=== PATIENT | male | born 1960 | race Caucasian/White ===

== ENCOUNTER 2016-09-24 08:18 | Emergency (ER) | payer OTHER ==
[2016-09-24] MEDS ORDERED: MORPHINE SULFATE INJ 2 MG ONE ×2 (08:23→08:25)
[2016-09-24] MEDS ORDERED: MORPHINE SULFATE INJ 4 MG IVP ONE (08:29)
--- NOTE | 2016-09-24 08:31 | DR.CP ---
HPI - Time Seen Time seen: 08:20 PMH - PMH Past Medical History: Asthma, COPD, Coronary Artery Disease, Diabetes, Hypertension, [place] Past Surgical History: Yes Surgical History: Angioplasty/Stents - Family History Family Medical History: Diabetes Mellitus, Coronary Artery Disease, Heart Failure, Hypertension - Social History Do you use any recreational Drugs:: No PE - Vitals Vitals: Blood Pressure [Right Arm] 153/97 Blood Pressure [Left Arm] 158/93 Blood Pressure 153/97 - Discharge Plan Condition: Stable - Follow ups/Referrals Follow ups/Referrals: VIKASH WORKMAN [Primary Care Provider] - 3 days - Instructions
[2016-09-24 08:37] VITALS: BMI 35.7
--- NOTE | 2016-09-24 08:53 | RAD ---
HISTORY: Chest pain Study: Single-view chest Comparison: February 01, 2016 Findings: The trachea is midline. The cardiac silhouette is unremarkable. A pacing device overlying the left south thorax is observed. The lungs are clear without focal infiltrate or effusion. The bony thorax is unremarkable. IMPRESSION: 1. No acute cardiopulmonary disease. Reported By:
[2016-09-24 08:54] LABS: BASOPHILS # (AUTO) 0.1 X10^3/uL (0.0-0.1); BASOPHILS % (AUTO) 0.7 % (0.2-1.0); EOSINOPHILS % (AUTO) 0.5 % (0.9-2.9); HEMATOCRIT 40.7 % (42.0-54.0); HEMOGLOBIN 13.9 g/dL (13.5-18.0); LYMPHOCYTES # (AUTO) 0.9 X10^3/uL (1.3-2.9); LYMPHOCYTES % (AUTO) 9.9 % (21.0-51.0); MEAN CORPUSCULAR HGB CONC 34.1 g/dL (33.0-35.0); MEAN CORPUSCULAR VOLUME 85.2 fL (80.0-100.0); MONOCYTES # (AUTO) 0.4 x10^3/uL (0.3-0.8); MONOCYTES % (AUTO) 4.2 % (0.0-13.0); NEUTROPHILS # (AUTO) 7.4 x10^3/uL (2.2-4.8); NEUTROPHILS % (AUTO) 84.7 % (42.0-75.0); PLATELET COUNT 270 X10^3/uL (150.0-450.0); RED BLOOD COUNT 4.78 X10^6/uL (4.7-6.0); RED CELL DISTRIBUTION WIDTH 14.5 % (11.6-16.5); WHITE BLOOD COUNT 8.8 X10^3/uL (3.6-10.0)
[2016-09-24 09:56] VITALS: BP 189/96
[2016-09-24 10:00] LABS: BLOOD UREA NITROGEN 7 mg/dL (7-18); CALCIUM 9.3 mg/dL (8.5-10.1); CARBON DIOXIDE 27.6 mmol/L (21-32); CHLORIDE 103 mmol/L (98-107); COR NA(FOR HYPERGLY) 143 mmol/L (136-145); CREATININE 1.06 mg/dL (0.70-1.30); GLUCOSE 173 mg/dL (65-99); SODIUM 141 mmol/L (136-145); TROPONIN I < 0.02 ng/mL (0-1.5); eGFR BLACK RACES > 60 (>60); eGFR NON BLACK RACES > 60 (>60)
[2016-09-24 10:04] LABS: ALANINE AMINOTRANSFERASE 17 Units/L (12-78); ALBUMIN 4.1 g/dL (3.4-5.0); ALKALINE PHOSPHATASE 95 Units/L (46-116); ASPARTATE AMINO TRANSFERASE 15 Units/L (15-37); CREATINE KINASE 64 Units/L (39-308); CREATINE KINASE MB < 1.0 ng/mL (0-4.0); TOTAL PROTEIN 8.4 g/dL (6.4-8.2)
[2016-09-24] MEDS ORDERED: MORPHINE SULFATE INJ 4 MG ONE ×2 (10:05→10:35)
[2016-09-24 10:06] LABS: CKMB % 1.6 % (<4)
[2016-09-24] MEDS ORDERED: MORPHINE SULFATE INJ 4 MG IM ONE ×2 (10:06→10:34)
[2016-09-24] MEDS ORDERED: K-LYTE EFFERVESCENT ONE (10:38)
[2016-09-24] MEDS ORDERED: K-LYTE EFFERVESCENT PO SCH (11:00)
== END 2016-09-24 10:50 | disposition home or self-care (01) ==
LOC: ER 08:18
DX: R07.89 Other chest pain (principal); I25.2 Old myocardial infarction; I10 Essential (primary) hypertension; J44.9 Chronic obstructive pulmonary disease, unspecified
CPT/HCPCS: 36415; 71010; 80053; 82550; 82553; 83735; 84100; 84484; 85025; 93005; 93010; 96365; 96372; 96374; 99282; 99283; A4222; J2270